=== PATIENT | female | born 1990 | race Two or more races ===

== ENCOUNTER 2019-07-08 01:54 | Emergency (ER) | payer OTHER ==
[2019-07-08 02:22] LABS: APPEARANCE,URINE CLEAR; BILIRUBIN,URINE NEGATIVE (NEGATIVE); COLOR,URINE RED; GLUCOSE, URINE 50 mg/dL (NEGATIVE); KETONES,URINE NEGATIVE (NEGATIVE); LEUKOCYTE ESTERASE,URINE SMALL (NEGATIVE); NITRITE,URINE NEGATIVE (NEGATIVE); PROTEIN,URINE 100 mg/dL (NEGATIVE); URINE SPECIFIC GRAVITY 1.004; UROBILINOGEN,URINE NEGATIVE mg/dL (<2.0)
--- NOTE | 2019-07-08 04:16 | ER Document Report ---
ED GI/ - General Chief Complaint: Urinary Problem Stated Complaint: URINARY ISSUES Time Seen by Provider: 07/08/19 04:16 Mode of Arrival: Ambulatory Information source: Patient Notes: HISTORY OF PRESENT ILLNESS: Patient is a 28-year-old female with a past medical history of prior urinary tract infections who presents with 2 days of hematuria and dysuria that the patient describes as burning in sensation that gradually began and is worsening. Patient reports this is similar to her previous episodes of urinary tract infections, denies vomiting or diarrhea, denies vaginal bleeding. Of note, the patient also states that she has nasal and chest congestion but denies fevers or chills, no cough. Location: Suprapubic Onset: 2 days ago Provocation: Urination Quality: Burning, bleeding Radiation: None Severity: Mild to moderate Timing: Intermittent LMP: "Earlier this month" Associated symptoms: No fevers or chills, no vomiting or diarrhea, no vaginal bleeding or discharge REVIEW OF SYSTEMS: CONSTITUTIONAL : Denies fever or chills, no sweats. Denies recent illness. EENT: Denies eye, ear, throat, or mouth pain or symptoms. CARDIOVASCULAR: Denies chest pain. RESPIRATORY: Positive for nasal and chest congestion. Denies shortness of breath, difficulty breathing, or wheezing. GASTROINTESTINAL: Denies abdominal pain. Denies nausea, vomiting, or diarrhea. Denies constipation. GENITOURINARY: Positive for painful urination, burning, and blood in urine. Denies vaginal bleeding, abnormal or irregular periods. MUSCULOSKELETAL: Denies neck or back pain or joint pain or swelling. SKIN: Denies rash or skin lesions. HEMATOLOGIC : Denies easy bruising or bleeding. LYMPHATIC: Denies swollen, enlarged glands. NEUROLOGICAL: Denies altered mental status or loss of consciousness. Denies headache. Denies weakness or paralysis or loss of use of either side. Denies problems with gait or speech. Denies sensory or motor loss. PSYCHIATRIC: Denies anxiety or stress or depression. All other systems reviewed and negative. PHYSICAL EXAMINATION: GENERAL: Well-appearing, well-nourished and in no acute distress. HEAD: Atraumatic, normocephalic. No scalp deformity, depression, or crepitance. EYES: Pupils are 3 mm and equal/round/reactive to light, extraocular movements intact, sclera anicteric, conjunctiva are normal. ENT: Nares patent bilaterally, oropharynx clear without exudates or palatal petechia. Moist mucous membranes. No tonsil hypertrophy. NECK: Normal range of motion, supple without lymphadenopathy. LUNGS: Breath sounds present, equal, and clear to auscultation bilaterally. No wheezes, rales, or rhonchi. HEART: Regular rate and rhythm without murmurs, rubs, or gallops. 2+ peripheral pulses. Normal capillary refill. ABDOMEN: Soft, mild tenderness in the suprapubic area, nondistended. Normoactive bowel sounds. No guarding, no rebound. No masses appreciated. BACK: Normal contour, no midline tenderness. Rectal exam deferred. PELVC: Deferred. EXTREMITIES: Normal range of motion, no pitting or edema. No cyanosis. NEUROLOGICAL: No focal neurological deficits. Moves all extremities spontaneously and on command. PSYCH: Normal mood, normal affect. No suicidal thoughts/ideations. No homicidal thoughts/ideations. No hallucinations. SKIN: Warm, dry, normal turgor, no rashes or lesions noted. ASSESSMENT AND PLAN: This patient is a 28-year-old female who presents with dysuria with hematuria and nasal/chest congestion. Appears consistent with viral syndrome, however patient also likely has hematuria and dysuria secondary to urinary tract infection given her previous history. 1. Will obtain urine with test and reassess. 2. Will give intramuscular Toradol. TRAVEL OUTSIDE OF THE [place] IN LAST 30 DAYS: No - HPI Patient complains to provider of: Dysuria, Hematuria Onset: Yesterday Timing/Duration: Gradual Quality of pain: Burning Severity at maximum: Mild Severity in ED: Mild Pain Level: 2 Location: Suprapubic Vaginal bleeding (Compared to normal period): None Sexual history: Inactive Associated symptoms: Other - Nasal and chest congestion Exacerbated by: Other - Urination Relieved by: Denies Similar symptoms previously: No Recently seen / treated by doctor: No - Related Data Allergies/Adverse Reactions: doxycycline Allergy (Verified 07/08/19 02:08) Home Medications: [place] Past Medical History - General Information source: Patient - Social History Smoking Status: Never Smoker Chew tobacco use (# tins/day): No Frequency of alcohol use: None Drug Abuse: None Lives with: Alone Family History: Reviewed & Not Pertinent Patient has suicidal ideation: No Patient has homicidal ideation: No - Medical History Medical History: Negative - Past Medical History Cardiac Medical History: Reports: None Pulmonary Medical History: Reports: None EENT Medical History: Reports: None Neurological Medical History: Reports: None Endocrine Medical History: Reports: None Renal/ Medical History: Reports: None Malignancy Medical History: Reports: None GI Medical History: Reports: None Musculoskeletal Medical History: Reports None Skin Medical History: Reports None Psychiatric Medical History: Reports: None Traumatic Medical History: Reports: None Infectious Medical History: Reports: None Surgical Hx: Negative Past Surgical History: Reports: None - Immunizations Immunizations up to date: Yes Hx Diphtheria, Pertussis, Tetanus Vaccination: Yes Review of Systems - Review of Systems Constitutional: No symptoms reported EENT: No symptoms reported Cardiovascular: No symptoms reported Respiratory: No symptoms reported Gastrointestinal: No symptoms reported Genitourinary: See HPI, Burning, Dysuria, Frequency, Hematuria, Urgency Female Genitourinary: See HPI Musculoskeletal: No symptoms reported Skin: No symptoms reported Hematologic/Lymphatic: No symptoms reported Neurological/Psychological: No symptoms reported -: Yes All other systems reviewed and negative Physical Exam - Vital signs Vitals: Temp Pulse Resp BP Pulse Ox 97.7 F 83 18 123/71 99 07/08/19 01:56 07/08/19 01:56 07/08/19 01:56 07/08/19 01:56 07/08/19 01:56 Interpretation: Normal Course - Re-evaluation Re-evalutation: 07/08/19 04:36 Urinalysis shows nitrite negative UTI. Patient has a negative test. Will discharge the patient home with strict return precautions and follow-up with primary care. All results were explained to and discussed with the patient, and all questions addressed and answered. The patient voices both understanding and agreeing with the plan. - Vital Signs Vital signs: Temp Pulse Resp BP Pulse Ox 97.7 F 83 18 123/71 99 07/08/19 01:56 07/08/19 01:56 07/08/19 01:56 07/08/19 01:56 07/08/19 01:56 - Laboratory Laboratory results interpreted by me: 07/08/19 02:03 Urine Protein 100 H Urine Glucose (UA) 50 H Urine Blood MODERATE H Ur Leukocyte Esterase SMALL H Discharge - Discharge Clinical Impression: Viral syndrome Urinary tract infection Qualifiers: Urinary tract infection type: acute cystitis Hematuria presence: with hematuria Qualified Code(s): N30.01 - Acute cystitis with hematuria Condition: Good Disposition: HOME, SELF-CARE Instructions: Urinary Tract Infection ([facility]), Viral Syndrome ([facility]), Trimethoprim-Sulfa ([facility]) Additional Instructions: You have been evaluated in the Emergency Department for difficulty urinating with burning and bleeding, also with nasal congestion. While here, you had laboratory work that showed evidence of a urinary tract infection and it is now safe to be discharged home. Please follow-up with your primary physician as instructed in one week to be rechecked. Return to the Emergency Department if you experience high fevers, difficulty breathing, the inability to urinate, worsening blood in the urine, or any other concerning symptoms. Prescriptions: Codeine Phosphate/Guaifenesin [Cheratussin AC Syrup] 10 ml PO Q6HP PRN #280 liquid PRN Reason: Nasal Congestion Sulfamethoxazole/Trimethoprim [Bactrim Ds Tablet] 1 each PO BID #20 tablet Phenazopyridine HCl [Pyridium 200 mg Tablet] 200 mg PO TID #15 tablet Print Language: Togolese
[2019-07-08] MEDS ORDERED: SULFAMETHOXAZOLE/TRIMETHOPRIM 800-160 MG TABLET PO ONE (04:25)
[2019-07-08] MEDS ORDERED: KETOROLAC TROMETHAMINE 60 MG/2 ML SDV IM ONE (04:25)
[2019-07-08 04:52] VITALS: BP 110/73
== END 2019-07-08 04:57 | disposition home or self-care (01) ==
LOC: ER 01:54
DX: N30.01 Acute cystitis with hematuria (principal); B34.9 Viral infection, unspecified; R09.81 Nasal congestion; R09.89 Other specified symptoms and signs involving the circulatory and respiratory systems; Z79.3 Long term (current) use of hormonal contraceptives; Z88.1 Allergy status to other antibiotic agents
CPT/HCPCS: 81025; 81001; J1885; 96372; 99283